=== PATIENT | female | born 1960 | race American Indian/Alaskan Native ===

== ENCOUNTER 2019-01-25 03:14 | Emergency (ER) | payer BC ==
[~2019-01-25] VITALS: Ht 165.1 cm; Wt 109.1 kg
[~2019-01-25 03:14] MED LIST: ASPI-1265 PO; INSU100V36 SQ; LANTUS SQ; crestor
[2019-01-25] MEDS ORDERED: acetaminophen 325mg tablet PO ONE (03:25)
[2019-01-25 03:55] LABS: BASOPHILS % (AUTO) 0.9 % (0-1); EOSINOPHILS % (AUTO) 0.8 % (0-6); LYMPHOCYTES # (AUTO) 1.5 X10'3 (1.1-4.8); LYMPHOCYTES % (AUTO) 39.2 % (21-51); MEAN CORPUSCULAR HEMOGLOBIN 26.8 PG (27.0-31.0); MEAN CORPUSCULAR VOLUME 78.7 FL (78-98); MONOCYTES # (AUTO) 0.6 X10'3 (0-0.9); MONOCYTES % (AUTO) 16.3 % (2-12); NEUTROPHILS # (AUTO) 1.6 X10'3 (1.8-7.7); NEUTROPHILS % (AUTO) 42.8 % (42-75); PLATELET COUNT 138 X10'3 (140-440); RED BLOOD COUNT 5.21 X10'6 (4.20-5.60); RED CELL DISTRIBUTION WIDTH 14.6 % (11.5-14.5); WHITE BLOOD COUNT 3.8 X10'3 (4.5-11.0)
[2019-01-25] MEDS ORDERED: ipratropium/albuterol 3ml nebule NEB ONE (03:55)
[2019-01-25 04:07] LABS: ALANINE AMINOTRANSFERASE 55 U/L (12-78); ALBUMIN 3.1 G/DL (3.4-5.0); ALBUMIN/GLOBULIN RATIO 0.7 (1.1-1.5); ALKALINE PHOSPHATASE 155 IU/L (46-116); ANION GAP 5 (8-16); ASPARTATE AMINO TRANSFERASE 53 U/L (10-37); BILIRUBIN,TOTAL 0.6 MG/DL (0.1-1.0); BLOOD UREA NITROGEN 6 MG/DL (7-18); BUN/CREATININE RATIO 10.5 (6.6-38.0); CALCIUM 8.1 MG/DL (8.5-10.1); CHLORIDE 99 MMOL/L (99-107); CREATININE 0.57 MG/DL (0.40-0.90); GLUCOSE 265 MG/DL (70-104); POTASSIUM 4.1 MMOL/L (3.5-5.1); SODIUM 132 MMOL/L (135-145); TOTAL CARBON DIOXIDE 28.2 MMOL/L (24-32); TOTAL PROTEIN 7.3 G/DL (6.4-8.2); eGFR > 90 ML/MIN
--- NOTE | 2019-01-25 04:42 | NUR ---
pt reports ease of breathing after neb treatment. awaiting lab results at this time. fever has decreased to 98.9 - no needs at this time.
[2019-01-25] MEDS ORDERED: AZIT-63 PO (04:58)
[2019-01-25] MEDS ORDERED: BENZ-38 PO (04:58)
[2019-01-25] MEDS ORDERED: azithromycin 250mg tablet PO ONE (05:00)
[2019-01-25 05:36] VITALS: BP 156/73
[2019-01-25 07:11] LABS: PLATELET ESTIMATE DECREASED; TOTAL CELLS COUNTED 100
[2019-01-25 07:12] LABS: MICROCYTOSIS 1+
== END 2019-01-25 05:37 | disposition home or self-care (01) ==
LOC: ER 03:15
DX: J20.9 Acute bronchitis, unspecified (principal); E11.9 Type 2 diabetes mellitus without complications; Z87.891 Personal history of nicotine dependence; Z88.5 Allergy status to narcotic agent; Z79.82 Long term (current) use of aspirin; Z79.4 Long term (current) use of insulin; Z79.899 Other long term (current) drug therapy
CPT/HCPCS: 36415; 71046; 80053; 85025; 87502; 87503; 94640; 94760; 99284

== ENCOUNTER 2021-11-10 14:40 | Inpatient (IN) | payer BC, OTHER ==
[~2021-11-10] VITALS: Ht 162.6 cm; Wt 99.5 kg
[2021-11-10] MEDS ORDERED: normal saline 1000ML IV soln IVB ONE (15:15)
[2021-11-10 15:36] LABS: HEMOGLOBIN 12.4 g/dl (12.0-16.0); MONOCYTES # (AUTO) 0.4 X10'3 (0-0.9); NEUTROPHILS # (AUTO) 0.2 X10'3 (1.8-7.7); NEUTROPHILS % (AUTO) 7.6 % (42-75); WHITE BLOOD COUNT 2.6 X10'3 (4.5-11.0)
[2021-11-10 15:39] LABS: BASOPHILS % (AUTO) 0.3 % (0-1); EOSINOPHILS % (AUTO) 0.2 % (0-6); HEMATOCRIT 36.9 % (35.0-45.0); LYMPHOCYTES % (AUTO) 76.2 % (21-51); MEAN CORPUSCULAR HEMOGLOBIN 28.3 PG (27.0-31.0); MEAN CORPUSCULAR HGB CONC 33.7 g/dL (33.0-36.5); MEAN PLATELET VOLUME 9.2 FL (7.4-10.4); MONOCYTES % (AUTO) 15.7 % (2-12); PLATELET COUNT 85 X10'3 (140-440); RED CELL DISTRIBUTION WIDTH 15.5 % (11.5-14.5)
[2021-11-10 15:45] LABS: ALANINE AMINOTRANSFERASE 34 U/L (12-78); ALBUMIN 2.8 G/DL (3.4-5.0); ALBUMIN/GLOBULIN RATIO 0.5 (1.1-1.5); ALKALINE PHOSPHATASE 183 IU/L (46-116); ANION GAP 9 (8-16); ASPARTATE AMINO TRANSFERASE 45 U/L (10-37); BILIRUBIN,TOTAL 0.8 MG/DL (0.1-1.0); BLOOD UREA NITROGEN 6 MG/DL (7-18); BUN/CREATININE RATIO 9.4 (6.6-38.0); CALCIUM 8.7 MG/DL (8.5-10.1); CHLORIDE 101 MMOL/L (99-107); CREATININE 0.64 MG/DL (0.40-0.90); POTASSIUM 3.9 MMOL/L (3.5-5.1); SODIUM 138 MMOL/L (135-145); TOTAL CARBON DIOXIDE 28.3 MMOL/L (24-32); TOTAL PROTEIN 7.9 G/DL (6.4-8.2); eGFR > 90 ML/MIN
[2021-11-10 15:51] LABS: GLUCOSE 113 MG/DL (70-104)
[2021-11-10 16:10] LABS: C-REACTIVE PROTEIN 2.44 MG/DL (0.0-0.5)
--- NOTE | 2021-11-10 16:41 | NUR ---
PATIENT AMBULATED TO BR STEADY GAIT. SPECIMEN OBTAINED, TO LAB.
[2021-11-10 16:42] LABS: LYMPHOCYTES % (MANUAL) 68 % (21-51); MONOCYTES % (MANUAL) 18 % (2-12); NEUTROPHILS % (MANUAL) 7 % (42-75); REACTIVE LYMPHOCYTES % 7 % (0-0); TOTAL CELLS COUNTED 100
[2021-11-10 16:47] LABS: ANISOCYTOSIS 1+; PLATELET ESTIMATE DECREASED
[2021-11-10 16:51] LABS: LARGE PLATELETS FEW
[2021-11-10] MEDS ORDERED: normal saline 1000ML IV soln IV ONE (16:55)
[2021-11-10] MEDS ORDERED: piperacillin/tazo 3.375gm/50ml 50 ML IV ONE (16:55)
[2021-11-10] MEDS ORDERED: vancomycin/NS 1 GM ADD-VANTAGE 250 ML IV ONE (16:55)
[2021-11-10 17:00] LABS: CLARITY,URINE CLOUDY (Clear); COLOR,URINE YELLOW (Yellow); GLUCOSE, URINE NEGATIVE (Neg); KETONES,URINE NEGATIVE (Neg); LEUKOCYTE ESTERASE ,URINE NEGATIVE (Neg); NITRITES, URINE NEGATIVE (Neg); OCCULT BLOOD,URINE NEGATIVE (Neg); PH,URINE 7.5 (4.8-8.0); PROTEIN,URINE NEGATIVE (Neg)
[2021-11-10 17:03] LABS: UA COLLECTION TYPE CLN CATCH MIDSTREAM
[2021-11-10] MEDS ORDERED: iohexol 300mg/ml 100ml inj. ONE (17:05)
[2021-11-10 17:14] LABS: BACTERIA,URINE 4+ /HPF (Neg); RBC,URINE 0-2 /HPF (0-2); SQUAMOUS EPITHELIAL CELL,UR FEW /LPF (FEW)
--- NOTE | 2021-11-10 17:50 | NUR ---
PATIIENT TO CT AND BACK WITH GOVERNMENT CLERK VIA GURNEY. DENIES ANY C/O PAIN
[2021-11-10] MEDS ORDERED: DUTA0.5C36 PO (19:10)
[2021-11-10] MEDS ORDERED: magnesium hydroxide 30ml (MOM) UD suspension PO PRN (19:10)
[2021-11-10] MEDS ORDERED: POTASSIUM BICARB 20meq eff tab 20 MEQ TABLET.EFF PO PRN ×2 (19:10)
[2021-11-10] MEDS ORDERED: OXYB-58 PO (19:10)
[2021-11-10] MEDS ORDERED: magnesium 2GM in 50ml NS 50 ML IV PRN (19:10)
[2021-11-10] MEDS ORDERED: magnesium Cl slow-release 64mg tablet PO PRN (19:10)
[2021-11-10] MEDS ORDERED: GENT30OI2 TOP (19:10)
[2021-11-10] MEDS ORDERED: COLL30OI TOP (19:10)
[2021-11-10] MEDS ORDERED: magnesium 4gm in 100ml NS 100 ML IV PRN (19:10)
[2021-11-10] MEDS ORDERED: ondansetron/PF 4mg/2ml inj IV PRN (19:10)
[2021-11-10] MEDS ORDERED: mag hydrox/Alum hydrox/simeth 30ml oral suspension PO PRN (19:10)
[2021-11-10] MEDS ORDERED: acetaminophen 325mg tablet PO PRN (19:10)
[2021-11-10] MEDS ORDERED: potassium CL 10mEq/100ml bag 100 ML IV PRN (19:10)
[2021-11-10] MEDS ORDERED: CHOL500050 PO (19:10)
[2021-11-10] MEDS ORDERED: LACT1CAP60 PO (19:11)
[2021-11-10] MEDS ORDERED: ASPI-1071 PO (19:12)
[2021-11-10] MEDS: docusate sod 100mg capsule PO SCH (20:00)
[2021-11-10] MEDS: heparin, porcine 5000 units/ml vial SQ SCH (20:42)
[2021-11-10] MEDS: clindamycin 300mg/D5W 50mL 50 ML IV SCH (20:42)
[2021-11-10] MEDS: K and/or MAG REPLACEMENT MC SCH (20:44)
[2021-11-10 21:41] LABS: MAGNESIUM 1.7 MG/DL (1.5-2.4); POTASSIUM 3.9 MMOL/L (3.5-5.1)
[2021-11-11] MEDS ORDERED: ceFAZolin/D5W- 1GM premix 50 ML IV SCH
[2021-11-11 00:45] VITALS: BP 168/69
[2021-11-11] MEDS: clindamycin 300mg/D5W 50mL 50 ML IV SCH ×3 (02:04→15:39)
[2021-11-11 06:00] VITALS: BP 157/68
--- NOTE | 2021-11-11 07:05 | NUR ---
Patient in room ORTHO 4023. I have received report from Rose Marie ROMO and had the opportunity to ask questions and assume patient care.
[2021-11-11 07:16] LABS: EOSINOPHILS % (AUTO) 0.3 % (0-6); LYMPHOCYTES # (AUTO) 1.4 X10'3 (1.1-4.8); MEAN PLATELET VOLUME 9.3 FL (7.4-10.4); MONOCYTES # (AUTO) 0.3 X10'3 (0-0.9); NEUTROPHILS # (AUTO) 0.2 X10'3 (1.8-7.7); NEUTROPHILS % (AUTO) 8.3 % (42-75)
[2021-11-11 07:18] LABS: BASOPHILS % (AUTO) 0.5 % (0-1); HEMATOCRIT 34.2 % (35.0-45.0); HEMOGLOBIN 11.8 g/dl (12.0-16.0); LYMPHOCYTES % (AUTO) 73.2 % (21-51); MEAN CORPUSCULAR HEMOGLOBIN 28.9 PG (27.0-31.0); MEAN CORPUSCULAR HGB CONC 34.5 g/dL (33.0-36.5); MEAN CORPUSCULAR VOLUME 83.8 FL (78-98); MONOCYTES % (AUTO) 17.7 % (2-12); PLATELET COUNT 75 X10'3 (140-440); RED BLOOD COUNT 4.08 X10'6 (4.20-5.60); RED CELL DISTRIBUTION WIDTH 15.5 % (11.5-14.5); WHITE BLOOD COUNT 1.9 X10'3 (4.5-11.0)
[2021-11-11 07:32] LABS: ALANINE AMINOTRANSFERASE 33 U/L (12-78); ALBUMIN 2.4 G/DL (3.4-5.0); ALBUMIN/GLOBULIN RATIO 0.5 (1.1-1.5); ALKALINE PHOSPHATASE 177 IU/L (46-116); ANION GAP 6 (8-16); ASPARTATE AMINO TRANSFERASE 51 U/L (10-37); BILIRUBIN,TOTAL 0.7 MG/DL (0.1-1.0); BLOOD UREA NITROGEN 7 MG/DL (7-18); BUN/CREATININE RATIO 11.9 (6.6-38.0); CALCIUM 8.2 MG/DL (8.5-10.1); CHLORIDE 105 MMOL/L (99-107); CREATININE 0.59 MG/DL (0.40-0.90); MAGNESIUM 1.8 MG/DL (1.5-2.4); POTASSIUM 4.1 MMOL/L (3.5-5.1); SODIUM 137 MMOL/L (135-145); TOTAL CARBON DIOXIDE 25.9 MMOL/L (24-32); eGFR > 90 ML/MIN
[2021-11-11 07:43] LABS: GLUCOSE 146 MG/DL (70-104)
[2021-11-11] MEDS: cefepime 1GM/NS ADD-VANTAGE 100 ML IV SCH ×2 (07:50→11:15)
[2021-11-11] MEDS ORDERED: OXYBUTYNIN CHLORIDE 5 MG PO SCH (08:00)
[2021-11-11] MEDS ORDERED: lactobacillus rhamnosus 10,000 MMU CELLS/CAPSULE PO SCH (08:00)
[2021-11-11] MEDS ORDERED: insulin glargine (Lantus) pen - multi-dose SQ SCH ×2 (08:00→21:00)
[2021-11-11] MEDS ORDERED: aspirin 81mg, enteric-coated 1 TAB TABLET.DR PO SCH (08:00)
[2021-11-11] MEDS ORDERED: COLLAGENASE TP SCH (08:00)
[2021-11-11] MEDS ORDERED: dutasteride 0.5 MG capsule PO SCH (08:00)
[2021-11-11] MEDS: K and/or MAG REPLACEMENT MC SCH (08:00)
[2021-11-11] MEDS ORDERED: gentamicin 0.1% topical ointment 15gm TP SCH (08:00)
[2021-11-11] MEDS: heparin, porcine 5000 units/ml vial SQ SCH (08:00)
[2021-11-11] MEDS ORDERED: cholecalciferol (vitamin D3) 1,000 unit (25mcg) tablet PO SCH (08:00)
[2021-11-11] MEDS: docusate sod 100mg capsule PO SCH (08:17)
[2021-11-11] MEDS ORDERED: vancomycin 1,750 MG in NS 350ml IV soln IV ONE (08:30)
[2021-11-11 09:14] LABS: TOTAL CELLS COUNTED 100
[2021-11-11 09:15] LABS: ANISOCYTOSIS 1+; PLATELET ESTIMATE DECREASED
[2021-11-11 09:16] LABS: LARGE PLATELETS FEW
--- NOTE | 2021-11-11 09:25 | NUR ---
Diabetes consult: Pt w/ hx of DM A1c 8.5 per EMR. Pt [facility]. Written DM w/ RD contact info left w/ pt and family members. Pt has buttock decubitus ulcer per MD note, WOC pending. Addendum: 11/11/21 at [address] Amended: Links added.
[2021-11-11 10:00] VITALS: BP 150/74
[2021-11-11 14:00] VITALS: BP 144/72
[2021-11-11] MEDS ORDERED: insulin Lispro (HumaLOG) vial - multi-dose SQ SCH (15:35)
[2021-11-11] MEDS ORDERED: dextrose 50%-water 50ml dispensing syringe IV PRN ×2 (15:35)
[2021-11-11] MEDS ORDERED: glucagon, human recombinant 1mg kit SUBCUT PRN (15:35)
[2021-11-11] MEDS ORDERED: DEXTROSE 15 GM of carb/4 tabs (each vial/BOTTLE has 4 tablets) PO PRN ×2 (15:35)
[2021-11-11] MEDS ORDERED: MESSAGE TO PHARMACY PO ONE (15:35)
[2021-11-11] MEDS ORDERED: vancomycin/NS 1 GM ADD-VANTAGE 250 ML IV SCH (23:00)
[2021-11-12] MEDS ORDERED: VANCOMYCIN LEVEL IV ONE (22:30)
== END 2021-11-11 16:50 | disposition left against medical advice (07) | DRG 603 ==
LOC: ER 14:40 → ED HOLD 19:09 → EDBEDREQ 23:45 → ORTHO 4S 11-11 00:05
PROVIDERS: ADMIT Internal Medicine; ATTEND Family Medicine
PROC: BW2G1ZZ Computerized Tomography (CT Scan) of Pelvic Region using Low Osmolar Contrast (ICD-10-PCS; principal; 2021-11-10)
DX: L03.317 Cellulitis of buttock (principal); E11.65 Type 2 diabetes mellitus with hyperglycemia; D72.819 Decreased white blood cell count, unspecified; Z53.29 Procedure and treatment not carried out because of patient's decision for other reasons; Z90.710 Acquired absence of both cervix and uterus; Z88.8 Allergy status to other drugs, medicaments and biological substances; Z79.899 Other long term (current) drug therapy; Z79.4 Long term (current) use of insulin
CPT/HCPCS: 36415; 72193; 80053; 81001; 82948; 83036; 83605; 83735; 84132; 84145; 85007; 85025; 85651; 86140; 87040; 87070; 87077; 87081; 87088; 87186; 93005; 96365; 99285; A6212; G0378; J0690; J0692; J1644; J1815; J2543; J3370; J3490; J7030; J7040; Q9967

== ENCOUNTER 2022-12-12 00:31 | Emergency (ER) | payer BC, OTHER ==
[~2022-12-12] VITALS: Ht 162.6 cm; Wt 86.4 kg
[~2022-12-12 00:31] MED LIST changes: +ASPI-1071 PO; -ASPI-1265 PO; +CHOL500050 PO; +COLL30OI TOP; +DUTA0.5C36 PO; +GENT30OI2 TOP; -INSU100V36 SQ; +LACT1CAP60 PO; +OXYB-58 PO; -crestor
[2022-12-12 00:34] VITALS: BP 146/79; PULSE 80; TEMP 98.2; O2SAT 97
[2022-12-12] MEDS ORDERED: ketorolac tromethamine 15mg/ml inj. IV ONE (00:40)
[2022-12-12 01:19] VITALS: RESP 20
== END 2022-12-12 02:12 | disposition home or self-care (01) ==
LOC: ER 00:32
DX: M25.552 Pain in left hip (principal); R55 Syncope and collapse; E11.9 Type 2 diabetes mellitus without complications; Z85.00 Personal history of malignant neoplasm of unspecified digestive organ; Z85.6 Personal history of leukemia; Z79.899 Other long term (current) drug therapy; Z79.82 Long term (current) use of aspirin; Z79.4 Long term (current) use of insulin; Z88.8 Allergy status to other drugs, medicaments and biological substances; W19.XXXA Unspecified fall, initial encounter; Y93.89 Activity, other specified; Y92.89 Other specified places as the place of occurrence of the external cause; Y99.8 Other external cause status
CPT/HCPCS: 73502; 96374; 99284; J1885

== ENCOUNTER 2025-01-17 17:04 | Inpatient (IN) | payer BC, OTHER ==
[~2025-01-17] VITALS: Ht 162.6 cm; Wt 91.8 kg
[2025-01-17 17:59] LABS: MEAN PLATELET VOLUME 9.0 FL (7.4-10.4); RED CELL DISTRIBUTION WIDTH 17.2 % (11.5-14.5)
[2025-01-17 18:09] LABS: CREATININE 1.28 MG/DL (0.40-0.90); TOTAL CARBON DIOXIDE 20.4 MMOL/L (24-32); eCRCL 37 ML/MIN; eGFR 42 ML/MIN
--- NOTE | 2025-01-17 18:20 | Physician Documentation ---
History of Present Illness Chief Complaint: Abdominal Pain Stated Complaint: ABDOMINAL PAIN Time Seen by MD: 18:18 OK to notify your PCP?: Yes Primary Medical Doctor: blanka mcdowell - Dr. Reynoso Source: patient, RN/, RN notes reviewed, old records Mode of Arrival: POV, Ambulatory Exam Limitations: no limitations HPI This patient has been having some abdominal pain for a couple of weeks. On Tuesday the patient was not feeling well [facility] and received some laboratory work. Patient has leukemia and was taking weekly pills. On Tuesday patient received an iron infusion and fluids because her blood pressure was low and feeling a bit ill. Today patient is seemed to be a bit more confused staring out into space having more abdominal pain that is seems to be much more severe and was having some shaking chills and rigors as well. She then decided to come into the ER for further workup and care. Patient is a poor historian she believes she has a urinary tract infection and is taking Pyridium currently not taking any antibiotics Medication Reconciliation Allergies: Coded Allergies: hydromorphone HCl (Verified Allergy, Intermediate, 01/17/25) N/V codeine (Verified Allergy, Unknown, 01/17/25) Scheduled Aspirin (Ecotrin*), 1 TAB PO DAILY, (Reported) Cholecalciferol (Vitamin D3) (Vitamin D3), 1 CAP PO DAILY, (Reported) Collagenase Oint* (Santyl Oint*), 1 APPLIC TOP DAILY, (Reported) Dutasteride (Dutasteride), 1 CAP PO DAILY, (Reported) Gentamicin Sulfate (Gentamicin Sulfate), 1 APPLIC TOP DAILY, (Reported) Insulin Glargine,Hum.rec.anlog* (Lantus*), 75 UNITS SQ DAILY, (Reported) Lactobac Cmb #3/Fos/Pantethine (Probiotic & Acidophilus Cap), 1 CAP PO DAILY, (Reported) Oxybutynin Chloride (Ditropan Xl), 1 TAB PO DAILY, (Reported) Past Medical History Past Medical History: Diabetes, Leukemia Past Surgical History: no surgical history Alcohol Use: None Lives with: Spouse Lives In: Home Review of Systems All Other Systems at this time: Reviewed and Negative Physical Exam Vital Signs: RN Vital Signs have been reviewed: Yes, Temperature: 98.9, Source: Temporal, Heart Rate: 104, Respiratory Rate: 16, BP: 130/45, Pulse Oximetry: 99, Weight: 91.820 Oxygen Flow Rate: 0 Physical Exam General: The patient is well developed, well nourished, ill appearing and is in mild acute distress. Skin: [place], warm and dry with no rashes. HEENT: Head was normocephalic and atraumatic. Eyes - pupils equal, round, reactive to light and accommodation. Extraocular movements were intact. Conjunctivae were nonicteric. The mouth and oropharynx were clear with moist mucous membranes. There were no pharyngeal exudates or erythema. Neck: Supple and nontender. There was no jugular venous distention, lymphadenopathy, thyromegaly or masses. Chest: Clear to auscultation bilaterally without wheezes, rales or rhonchi. No accessory muscle use. Heart: Rate regular rapid and rhythmic. S1, S2. No murmurs. Palpation of the chest wall was normal. No rubs or thrills. Abdomen: Diffusely tender but some point tenderness in the right upper right lower quadrant but all cano are painful and slightly distended. Positive increased bowel sounds. No guarding or rebound. No hepatosplenomegaly or palpable masses. No peritoneal signs Extremities: No cyanosis, clubbing or edema. The patient moves all extremities. Pulses were equal and symmetric. Neurologic: Motor sensory grossly intact Psychologic: The patient was oriented to person, place and time. The patient demonstrated appropriate judgement and insight. Progress Progress Note 8:30 p.m. discussed the case with General surgery recommended HIDA scan 9:50 p.m. discussed the case with the hospitalist regarding admission Results/Orders Reviewed/noted all lab results: Yes Results/Orders Vital Signs 01/17/25 01/17/25 01/17/25 17:14 17:38 17:44 Temp 98.9 Pulse 90 104 Resp 18 16 16 B/P (MAP) 140/53 130/45 (73) Pulse Ox 95 99 O2 Flow Rate 0 Laboratory Tests Test 01/17/25 17:40 CBC Comment Sodium Level 127 L Potassium Level 4.2 Chloride Level 96 L Carbon Dioxide Level 20.4 L Anion Gap 11 Blood Urea Nitrogen 24 H Creatinine 1.28 H Estimated GFR/1.73 m2 42 BUN/Creatinine Ratio 18.8 Glucose Level 190 H Calcium Level 7.4 L Total Bilirubin 3.6 H Aspartate Amino Transf (AST/SGOT) 26 Alanine Aminotransferase (ALT/SGPT) 22 Alkaline Phosphatase 149 H Total Protein 6.5 Albumin 2.2 L Globulin 4.3 Albumin/Globulin Ratio 0.5 L Lipase 33 Chemistry Comments Re-Evaluation Re-Evaluation : Re-Evaluation: Improved Progress Patient was given 2.7 L of fluids antibiotics placed on a monitor. Cat scans were obtained ultrasound patient has multiple sources of potential infections including urine, gallbladder, colon, and now x-ray was added showing some patchy infiltrates possible pneumonia. Patient did receive Zosyn and Rocephin assuming abdominal pathology. Rocephin covers both lung and urine infection as well. Patient received 30 milligrams/kilogram of fluids immediately. Patient is doing much better her mentation is starting to improve she is opening her eyes she is smiling. She remained hemodynamically stable in that there was no hypotension but she has had some tachycardia. Patient was then later admitted to the hospitalist service for further workup and care. CBC WBC 15.5 hemoglobin hematocrit 11 and 33 platelets low at 93 92.5 % neutrophils with a left shift. Coagulation obtained chemistry sodium low at 127 potassium 4.2 chloride 96 CO2 20 BUN 24 creatinine 1.2 with a lactic acid of 5.7 as well as glucose. During resuscitation which has not been completed patient's lactic acid has already improved to 3.9. Procalcitonin 8.17. Patient's bilirubin slightly elevated at 3.6 but LFTs are within normal limits. Calcium low at 7.4 for which the patient received supplementation. Patient's urine however was the patient's chief complaint for possible source of infection but she is taking Pyridium so the test is somewhat nondiagnostic. Urine WBCs 5-10 urine RBCs 0-2 with few squamous epithelial cells 2+ bacteria culture pending. Clearly patient has a UTI however may not be the primary source of the patient's overall presentation. Continuous impregnation operator interpretation shows sinus tachycardia heart rate 100s, abnormal, my interpretation. Pulse oximetry monitor interpretation shows normal oxygenation at 99% room air, normal, my interpretation. 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 Zane Rubin Measurements Intervals [place] Rate: 103 P: 52 NV: 159 QRS: 5 QRSD: 103 T: 31 QT: 344 QTc: 451 Interpretive Statements Sinus tachycardia Low voltage, precordial leads Baseline wander in lead(s) I,II,III,aVR,aVF Electronically Signed On 01-17-2025 21:51:[address] Zane Rubin Please click the below link to view image of tracing. Chest X-Ray : Interpreted By: both Views: 1 VIEW Additional Comments CHEST RADIOGRAPH Indication: CHEST PAIN Technique: Single frontal view of the chest was obtained COMPARISON: None FINDINGS: Mild patchy opacity at both lung bases. Cardiac silhouette and najma are within normal limits. Bones and soft tissues demonstrate no significant abnormality. IMPRESSION: Minimal patchy opacity at both lung bases which could be atelectatic. Please correlate with any strong concern for pneumonia. Electronically Signed by:JAVED RAMIREZ MD Date & Time: 01/17/252143 CT : CT: abdomen/pelvis With Contrast?: No Impression Exam: CT CT ABDOMEN PELVIS History: ABD PAIN Comparison Study: None Technique: Multidetector spiral CT of the abdomen was performed from lung bases to pubic symphysis. Imaging was performed without IV contrast. Axial, coronal and sagittal multiplanar reformats were obtained from the axial data set by the technologist. Radiation Dose : 1. Abdomen/Pelvis: CTDIvol 34.12 mGy, DLP 1869.74 mGy*cm. Findings: Findings: Evaluation of solid organs is limited due to lack of intravenous contrast use. Lung Bases: Trace right-sided pleural effusion. Liver: Cirrhotic in appearance with surface nodularity and lobar redistribution. Gallbladder and Biliary Tree: Cholelithiasis noted without secondary findings of cholecystitis or biliary obstruction. Spleen: Enlarged measuring 15.3 cm. Pancreas: The pancreas is grossly normal in appearance. Adrenal Glands: Unremarkable Kidneys: Kidneys are grossly normal without calculi or hydronephrosis. Bladder: Grossly unremarkable for degree of distention. Bowel: The stomach is grossly normal in appearance. Small bowel and colon are normal in caliber and distribution. Normal appendix is visualized in the right lower quadrant without findings of appendicitis. Questionable wall thickening of the cecum and ascending colon. Ascites: Generalized mesenteric edema. Trace ascites. Lymphadenopathy: No mesenteric, retroperitoneal or periportal lymphadenopathy. Abdominal Wall and Mesentery: Small fat containing paraumbilical hernia.. Vasculature: The visualized abdominal aorta is normal in size and caliber. Evaluation of abdominal and pelvic vessels is limited due to lack of intravenous contrast. Pelvic Organs: Unremarkable Musculoskeletal: No aggressive focal bony lesions, acute fractures or dislocation. IMPRESSION: Questionable thickening of the cecum and ascending colon. Please correlate with any symptoms of a colitis. Otherwise no acute abnormality. Cirrhosis with small volume of ascites and splenomegaly. Radiation optimization: All CT scans at this facility use at least one of these dose optimization techniques: automated exposure control mA and/or kV adjustment per patient size (includes targeted exams where dose is matched to clinical indication) or iterative reconstruction. Ultrasound : Impression INDICATION: ruq abdominal pain TECHNIQUE: Multiple real-time sonographic images of the abdomen were obtained. COMPARISON: CT CT ABDOMEN PELVIS on DOS: 01/17/25 FINDINGS: Liver: Normal in size measuring 12.3 cm with mild diffuse fatty infiltration. Gallbladder: Gallstones. No tense distention, wall thickening, or inflammatory changes. Sonographic Massey's sign is positive. CBD: 0.3 cm, within normal limits. Pancreas: Not well seen due to overlying bowel gas. Right kidney: 11.2 cm. No stones or hydronephrosis. IMPRESSION: Gallstones without acute cholecystitis. Medical Decision Making Additional information obtaine: old records Findings Possible risk factors with leukemia, immunosuppressive, multiple etiologies for infection: Gallbladder lung urine Differential Dx:Considerations: Angina/PA, Aortic dissection, Appendicitis, Cholangitis, Cholelithasis, Constipation, Diverticular disease, Esophagitis, Gastritis/PUD, Gastroenteritis, GI hemorrhage, Hernia, Hepatitis, Inflammatory BD, Ischemic bowel, Ovarian cyst/torsion, Pancreatitis, Urinary obstruction, Urinary tract infection, Urolithiasis, Other, N/A Departure Disposition: 09 ADMITTED INPATIENT Admitted to Inpatient Unit: yes, to hospitalist Admission Level of Care: PCU with Tele Impression: Primary Impression: Colitis Additional Impressions: Hyponatremia Metabolic encephalopathy Acute cholecystitis Sepsis Qualified Codes: A41.9 - Sepsis, unspecified organism; R65.20 - Severe sepsis without septic shock Condition: Guarded Referrals: NO PRIMARY CARE PROVIDER (PCP) Education Educated: Patient, Family Educated regarding: diagnosis, treatment Critical Care Note Total Time (mins): 30 Critical Care Note The very real possibility of a deterioration of this patient's condition requ ired the highest level of my preparedness for sudden, emergent intervention. I provided critical care services, which included medication orders, frequent reevaluations of the patient's condition and response to treatment, ordering and reviewing test results, and discussing the case with various consultants. Excludes time spent performing separately billable procedures. The critical care time associated with the care of the patient was. 30 minutes Signature Scribe Signature: x Attestation: The note accurately reflects work and decisions made by me.Zane Rubin MD 01/17/25 21:04 ZANE RUBIN MD Jan 17, 2025 18:20
[2025-01-17] MEDS: normal saline 1000ML IV soln IVB ONE (19:15)
[2025-01-17 19:18] LABS: APTT 38 SECONDS (22-32); INR 1.4 INR
[2025-01-17] MEDS: ringers solution, lactated 500ml IV solution IV ONE (19:20)
[2025-01-17] MEDS: CefTRIAXone 2gm/D5W 50ml BAG 50 ML IV ONE (20:11)
[2025-01-17] MEDS: piperacillin/tazo 3.375gm/50ml 50 ML IV ONE (20:11)
--- NOTE | 2025-01-17 20:15 | RADIOLOGY REPORT ---
Exam: CT CT ABDOMEN PELVIS History: ABD PAIN Comparison Study: None Technique: Multidetector spiral CT of the abdomen was performed from lung bases to pubic symphysis. Imaging was performed without IV contrast. Axial, coronal and sagittal multiplanar reformats were obtained from the axial data set by the technologist. Radiation Dose : 1. Abdomen/Pelvis: CTDIvol 34.12 mGy, DLP 1869.74 mGy*cm. Findings: Findings: Evaluation of solid organs is limited due to lack of intravenous contrast use. Lung Bases: Trace right-sided pleural effusion. Liver: Cirrhotic in appearance with surface nodularity and lobar redistribution. Gallbladder and Biliary Tree: Cholelithiasis noted without secondary findings of cholecystitis or biliary obstruction. Spleen: Enlarged measuring 15.3 cm. Pancreas: The pancreas is grossly normal in appearance. Adrenal Glands: Unremarkable Kidneys: Kidneys are grossly normal without calculi or hydronephrosis. Bladder: Grossly unremarkable for degree of distention. Bowel: The stomach is grossly normal in appearance. Small bowel and colon are normal in caliber and distribution. Normal appendix is visualized in the right lower quadrant without findings of appendicitis. Questionable wall thickening of the cecum and ascending colon. Ascites: Generalized mesenteric edema. Trace ascites. Lymphadenopathy: No mesenteric, retroperitoneal or periportal lymphadenopathy. Abdominal Wall and Mesentery: Small fat containing paraumbilical hernia.. Vasculature: The visualized abdominal aorta is normal in size and caliber. Evaluation of abdominal and pelvic vessels is limited due to lack of intravenous contrast. Pelvic Organs: Unremarkable Musculoskeletal: No aggressive focal bony lesions, acute fractures or dislocation. IMPRESSION: Questionable thickening of the cecum and ascending colon. Please correlate with any symptoms of a colitis. Otherwise no acute abnormality. Cirrhosis with small volume of ascites and splenomegaly. Radiation optimization: All CT scans at this facility use at least one of these dose optimization techniques: automated exposure control mA and/or kV adjustment per patient size (includes targeted exams where dose is matched to clinical indication) or iterative reconstruction.
[2025-01-17 20:31] LABS: UA COLLECTION TYPE STRAIGHT CATH
[2025-01-17 20:38] LABS: HYALINE CASTS 0-3 /LPF (NEGATIVE); MUCUS STRANDS FEW /LPF (Neg); SQUAMOUS EPITHELIAL CELL,UR FEW /LPF (FEW)
--- NOTE | 2025-01-17 21:03 | RADIOLOGY REPORT ---
INDICATION: ruq abdominal pain TECHNIQUE: Multiple real-time sonographic images of the abdomen were obtained. COMPARISON: CT CT ABDOMEN PELVIS on DOS: 01/17/25 FINDINGS: Liver: Normal in size measuring 12.3 cm with mild diffuse fatty infiltration. Gallbladder: Gallstones. No tense distention, wall thickening, or inflammatory changes. Sonographic Massey's sign is positive. CBD: 0.3 cm, within normal limits. Pancreas: Not well seen due to overlying bowel gas. Right kidney: 11.2 cm. No stones or hydronephrosis. IMPRESSION: Gallstones without acute cholecystitis.
[2025-01-17] MEDS: ringers solution, lacted 1,000 ML IV ONE (21:20)
--- NOTE | 2025-01-17 21:36 | ELECTROCARDIOGRAPH REPORT ---
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 Aaron Ortiz Measurements Intervals [place] Rate: 103 P: 52 [place]: 159 QRS: 5 QRSD: 103 T: 31 QT: 344 QTc: 451 Interpretive Statements Sinus tachycardia Low voltage, precordial leads Baseline wander in lead(s) I,II,III,aVR,aVF Electronically Signed On 01-17-2025 21:51:[address] Aaron Ortiz Please click the below link to view image of tracing.
--- NOTE | 2025-01-17 21:46 | RADIOLOGY REPORT ---
CHEST RADIOGRAPH Indication: CHEST PAIN Technique: Single frontal view of the chest was obtained COMPARISON: None FINDINGS: Mild patchy opacity at both lung bases. Cardiac silhouette and najma are within normal limits. Bones and soft tissues demonstrate no significant abnormality. IMPRESSION: Minimal patchy opacity at both lung bases which could be atelectatic. Please correlate with any strong concern for pneumonia.
[2025-01-17 22:23] LABS: LACTATE DEHYDROGENASE 232 U/L (81-234); PHOSPHORUS 3.5 MG/DL (2.3-4.5)
--- NOTE | 2025-01-17 22:44 | HISTORY AND PHYSICAL-Residence ---
History & Physical Providers to CC Resident Creating Document: JONAH HALE, RES ~ History of Present Illness Primary Medical Doctor: blanka mcdowell - Dr. Reynoso Reason for Admit\Complaint: abd pain History of Present Illness This is a 64 year old female with past medical history of diabetes, rheumatoid arthritis presents to the ER with chief complaints of abdominal pain. Patients and sister were present at the bedside. Patient was unable to give proper history as she was in acute distress, so most of the history has been obtained from her . According to him she started having pain in her abdomen few days ago, gradually increasing in intensity, got to a point where it became intolerable today, patient rates the pain as 9/10 in intensity, present in the right lower and upper quadrant, not radiating. She reports having associated nausea but no complaints of vomitings. She also reports that she has been having loose stools for the past 2 days, dark in color, about 7 episodes in the last 2 days, no blood seen. She also reports having chills but no fevers. She says that it is the 1st time that is something like this has happened, never had similar episodes in the past. Patient denies eating anything unusual, no recent sick contacts, no recent travel, no recent hospitalization or antibiotic usage. Allergies: Coded Allergies: hydromorphone HCl (Verified Allergy, Intermediate, 01/17/25) N/V codeine (Verified Allergy, Unknown, 01/17/25) Home Medications Home Medications Active Reported Ecotrin* (Aspirin) 81 Mg Tablet.dr 1 Tab PO DAILY 30 Days Probiotic & Acidophilus Cap (Lactobac Cmb #3/Fos/Pantethine) 1 Each Capsule 1 Cap PO DAILY Vitamin D3 (Cholecalciferol (Vitamin D3)) 125 Mcg Capsule 1 Cap PO DAILY Dutasteride 0.5 Mg Capsule 1 Cap PO DAILY Ditropan Xl (Oxybutynin Chloride) 5 Mg Tab.osm.24 1 Tab PO DAILY Gentamicin Sulfate 30 Gm Oint..gm. 1 Applic TOP DAILY Santyl Oint* (Collagenase) 30 Gm Oint..gm. 1 Applic TOP DAILY Lantus* (Insulin Glargine) 100 Unit/1 Ml Vial 75 Units SQ DAILY Past Medical History Past Medical History Diabetes mellitus type 2 Rheumatoid arthritis Past Surgical History Surgical History Comment Hysterectomy Past Social History Social History Comment Patient stopped smoking 38 years ago Drinks alcohol socially but stopped drinking 2 years ago No other illicit drug use Patient lives at home with GRACE-Blanka Mcdowell Smoking: Non-Smoker, Quit greater than 1 year Alcohol Use: None Lives with: Spouse Lives In: Home ROS All Other Systems: Reviewed and Negative ROS Constitutional: Denies: no symptoms reported, Eyes: Denies: no symptoms reported ENT: Denies: no symptoms reported Respiratory: Denies: Reports mild shortness of breath Cardiovascular: Denies: No symptoms reported Gastrointestinal: Denies: Reports Right lower and upper quadrant abdominal pain Genitourinary: Denies: no symptoms reported Female Genitalia: Denies: no reported symptoms Neurological: Denies: no symptoms reported Musculoskeletal: Denies: no symptoms reported Endocrine: Denies: no symptoms reported Exam Vitals: Vital Signs Date Time Temp Pulse Resp B/P (MAP) Pulse Ox O2 Delivery O2 Flow Rate FiO2 01/17/25 22:25 107 16 120/46 (70) 94 0 01/17/25 17:14 98.9 General: General: Awake, alert, oriented, in acute distress due to pain HEENT: Conjunctive are pink, sclerae clear, no icterus, Neck: Supple, no JVD, no lymphadenopathy and thyromegaly. Chest: Decreased breath sounds in the right side Cardiovascular: S1-S2 heard no gallops, no rubs, no murmurs Abdomen: soft, tenderness present in the right upper and lower quadrants of the abdomen, no guarding, no rigidity, no rebound tenderness Extremities: No edema, no cyanosis, peripheral pulsations intact Central Nervous System: No focal neurological deficits Musculoskeletal: No joint swelling, deformities, inflammations, and no scoliosis and back tenderness Skin: Warm and dry. Diagnostic Data Last Recorded Lab Results: 01/18/25 0405 01/18/25 0405 Diagnostic Data: Laboratory Tests Test 01/17/25 17:40 Prothrombin Time 13.8 SECONDS (9.0-12.0) H INR International Normalized Ratio 1.4 INR Activated Partial Thromboplast Time 38 SECONDS (22-32) H Coagulation Comments Advance Care Planning Advanced Care plannin - 30 Minutes (Full code) Additional Plan Acute abdominal pain Acute onset diarrhea Neutrophilic leukocytosis Likely due to cholelithiasis vs colitis Sepsis -Patient meeting SIRS criteria. Patient is hemodynamically stable except for tachycardia -Patient currently complaining of right upper and lower abdominal pain -Increased WBC count 15.5, Procal increased-8.17 -Total bilirubin increased 3.6, increased alkaline phosphatase 149 -CT abdomen shows- Questionable thickening of the cecum and ascending colon. Please correlate with any symptoms of a colitis. Cholelithiasis noted without secondary findings of cholecystitis or biliary obstruction. -Lactic acid initially 5.7, down trended to 3.9.patient was given 2 L LR bolus in the ED. And 1 L bolus NS. -Continuing the patient on NS 100 cc/hour. -Started patient on Flagyl and Levaquin -Awaiting results of HIDA scan. -C diff ordered please follow-up. Possible Pneumonia Community-acquired vs aspiration Increased WBC count and Procal Patient denies any complaints of cough, fevers, sputum production Patient was slightly short of breath clinically, currently maintaining saturation on room air Chest x-ray- Minimal patchy opacity at both lung bases which could be atelectatic. Please correlate with any strong concern for pneumonia. Patient on Levaquin Hyponatremia- Na- 127 Patient on fluids NS 100 cc/hr MAKENNA Likely due to dehydration Baseline creatinine-0.57 Current creatinine-1.28 Patient on fluids. Normocytic anemia- Hb- 11.4, MCV 90.6 Patient reports taking iron pills Iron studies ordered please follow-up Cirrhosis Likely due to underlying fatty liver No signs of peritonitis present AST ALT normal Low albumin 2.2 Increased bilirubin, alkaline phosphatase Low platelet, anemia CT scan shows Liver- Cirrhotic in appearance with surface nodularity and lobar redistribution. GGT ordered follow-up Patient has an appointment in January to follow-up on cirrhosis. Leukemia Currently in remission Cytopenia Decreased RBC and platelet count. Patient follows up with Dr. Hansen Code status: Full code DVT profile: Heparin Diet: Liquid Jonahshine Hale PGY-1 Date of Service: Jan 17, 2025 Billing Provider: MIGUEL ANGEL MC MD Addendum Attestation I agree with the residents assessment and plan as below: 64 year old female with DM admitted with abdominal pain. Plan: c diff hida scan levaquin and flagyl stool analysis mIVF CCT 52 min using HIPPA compliant A/V technology JONAH HALE, RES Jan 17, 2025 22:44 MIGUEL ANGEL MC MD Jan 18, 2025 18:50
[2025-01-17] MEDS ORDERED: magnesium sulf-water 2g/50mL 50 ML IV PRN (22:50)
[2025-01-17] MEDS ORDERED: magnesium Cl slow-release 64mg tablet PO PRN (22:50)
[2025-01-17] MEDS ORDERED: mag hydrox/Alum hydrox/simeth 30ml oral suspension PO PRN (22:50)
[2025-01-17] MEDS ORDERED: potassium Cl 40MEQ/1/2NS 520ml 520 ML IV PRN (22:50)
[2025-01-17] MEDS ORDERED: HYDROcodone/acetaminophen 10/325mg tab PO PRN (22:50)
[2025-01-17] MEDS ORDERED: magnesium sulf-water 4G/100mL 100 ML IV PRN (22:50)
[2025-01-17] MEDS ORDERED: magnesium hydroxide 30ml (MOM) UD suspension PO PRN (22:50)
[2025-01-17] MEDS ORDERED: potassium Cl 20 mEq SR tablet PO PRN ×2 (22:50)
[2025-01-17] MEDS ORDERED: HYDROcodone/acetaminophen 5mg/325mg tablet PO PRN (22:50)
[2025-01-18] MEDS: calcium chloride inj. 1,000 MG in normal saline 100ml IV soln 100 ML IV ONE (00:15)
[2025-01-18] MEDS: normal saline 1000ml 1,000 ML IV SCH (01:22)
[2025-01-18 01:50] VITALS: BP 138/57; PULSE 106; RESP 30; TEMP 98.9; O2SAT 96
[2025-01-18] MEDS ORDERED: TIRZ15PE SQ (02:45)
[2025-01-18] MEDS ORDERED: LIDO700A47 TOP (02:48)
[2025-01-18 04:23] LABS: MEAN PLATELET VOLUME 8.5 FL (7.4-10.4); RED CELL DISTRIBUTION WIDTH 17.3 % (11.5-14.5)
[2025-01-18 04:48] LABS: CHOL/HDL RATIO 6.9 (0.00-4.99); CREATININE 0.92 MG/DL (0.40-0.90); LDL CHOLESTEROL 34 MG/DL (50-100); TOTAL CARBON DIOXIDE 22.1 MMOL/L (24-32); eCRCL 52 ML/MIN; eGFR 61 ML/MIN
[2025-01-18 05:03] LABS: BANDS% (MANUAL) 2.0 % (0-10); EOSINOPHILS % (MANUAL) 1.0 % (0-6); LYMPHOCYTES % (MANUAL) 4.0 % (21-51); MONOCYTES % (MANUAL) 5.0 % (2-12); NEUTROPHILS % (MANUAL) 88.0 % (42-75); PLATELET ESTIMATE DECREASED
[2025-01-18 06:09] LABS: % IRON SATURATION 13 % (11-46)
[2025-01-18 07:15] VITALS: BP 95/44; PULSE 86; RESP 16; TEMP 97.3; O2SAT 93
[2025-01-18 08:00] VITALS: RESP 16; O2SAT 93
[2025-01-18] MEDS: K and/or MAG REPLACEMENT MC SCH (08:00)
[2025-01-18] MEDS: docusate sod 100mg capsule PO SCH (08:00)
[2025-01-18] MEDS: heparin, porcine 5000 units/ml vial SQ SCH (08:00)
[2025-01-18] MEDS: metroNIDAZOLE-Flagyl 500mg/NS 100 ML IV SCH (08:58)
[2025-01-18] MEDS: levoFLOXACIN-Levaquin 500mg/D5 100 ML IV SCH (08:58)
--- NOTE | 2025-01-18 14:44 | RADIOLOGY REPORT ---
HEPATOBILIARY SCINTIGRAPHY (HIDA SCAN) WITH EJECTION FRACTION REASON FOR EXAM: gallbladder pain. Abdominal pain. COMPARISON: None TECHNIQUE: 5.3 mCi of technetium 99m Choletec were injected intravenously and hepatobiliary scan was performed. This was followed by slow intravenous injection of 1.8 mcg sincalide. Dynamic cine loop and static images were reviewed on a workstation. FINDINGS: There is homogenous uptake of radiotracer within the liver on the immediate flow images. There is visualization of the biliary tree within 20 minutes of the study and there is progressive passage of radiotracer into the small bowel as the study progresses. There is no radiotracer extravasation. The gallbladder is visualized within 35 minutes of the study. Gallbladder ejection fraction is estimated at 15 % (normal greater than 35%). IMPRESSION: Patent cystic duct. No evidence of acute cholecystitis. Decreased gallbladder ejection fraction. This finding is nonspecific and can be seen with generalized illness, chronic acalculous cholecystitis, biliary dyskinesia, neuropathic and GI motility disorders.
[2025-01-18 15:14] LABS: OCCULT BLOOD STOOL POSITIVE (Neg)
--- NOTE | 2025-01-18 15:16 | PROGRESS NOTE ---
Daily Progress Note Providers to CC ~ Antibiotic Timeout Antibiotic Ordered?: Yes Subjective No new complaints. Family at bedside. Patient is asymptomatic. Objective Vital Signs Date Time Temp Pulse Resp B/P (MAP) Pulse Ox O2 Delivery O2 Flow Rate FiO2 01/18/25 08:00 16 93 Room Air 01/18/25 07:15 97.3 86 95/44 (61) 01/18/25 04:35 0.0 Result Diagram: 01/18/2540401/18/25404 Gen. awake alert oriented asymptomatic HEENT: Normocephalic, atraumatic, extraocular movements are intact, sclera anicteric, conjunctiva pinkish, moist oral mucosa, no rash or ulcers. NECK: Supple, no JVD, trachea midline. CHEST: Clear to auscultation, no wheezes crackles or rhonchi. HEART: Regular rate rhythm, no murmur gallop or rub. ABDOMEN: Soft, nontender, no organomegaly. EXTREMITIES: No cyanosis clubbing or edema. NEURO EXAM: Grossly nonfocal. MUSCULOSKELETAL : No joint swelling or deformities. SKIN: No rash or ulcers noted. Coagulation Studies Laboratory Tests Test 01/17/25 17:40 Prothrombin Time 13.8 SECONDS (9.0-12.0) H INR International Normalized Ratio 1.4 INR Activated Partial Thromboplast Time 38 SECONDS (22-32) H Coagulation Comments Other Results Medications reviewed Problem\Assessment\Plan 64 years old female #UTI: On IV Rocephin.Await final cultures. # Abdominal pain: Underwent HIDA scan which is negative for acute cholecystitis but showed a decreased ejection fraction which is a nonspecific finding and can be find with generalized illness, chronic acalculous cholecystitis, biliary dyskinesia and neuropathic and GI motility disorders. We will request surgery consult. #hyponatremia : Continue monitor # Gram-negative bacteremia: Continue IV antibiotics as noted above # code status: full code Date of Service: Jan 18, 2025 Billing Provider: GILA MIMS MD Common Visit Codes: [id number] INP/OBS CARE(HIGH) GILA MIMS MD Jan 18, 2025 15:16
[2025-01-18 15:24] LABS: C DIFF ANTIGEN NEGATIVE (NEGATIVE); C DIFF SPECIMEN=DIARRHEA? ACCEPTABLE; C DIFFICILE TOXINS A&B NEGATIVE (Neg)
[2025-01-18 15:48] VITALS: BP 103/58; PULSE 79; RESP 16; TEMP 97.9
[2025-01-18 18:00] VITALS: BP 127/75; PULSE 85; RESP 22; TEMP 97.1; O2SAT 96
[2025-01-18 20:00] VITALS: BP 99/47; PULSE 81; RESP 16; TEMP 97.4; O2SAT 94
[2025-01-18] MEDS ORDERED: CefTRIAXone/D5W-Rocephin 1gm 50 ML IV SCH (20:00)
[2025-01-18] MEDS ORDERED: METH2.5T55 PO (20:20)
[2025-01-18] MEDS ORDERED: ROSU10TA98 PO (20:24)
[2025-01-18] MEDS ORDERED: ESTR1TAB28 PO (20:24)
[2025-01-18] MEDS: ondansetron/PF 4mg/2ml inj IV PRN (20:36)
[2025-01-18] MEDS: normal saline 1000ML IV soln IVB ONE (23:07)
[2025-01-19] VITALS (7 sets, daily range): BP systolic 108–124; BP diastolic 47–61; PULSE 57–95; RESP 13–25; TEMP 97.3–98.4; O2SAT 92–98
[2025-01-19 03:33] LABS: MEAN PLATELET VOLUME 8.2 FL (7.4-10.4); RED CELL DISTRIBUTION WIDTH 17.1 % (11.5-14.5)
[2025-01-19 03:50] LABS: CREATININE 0.96 MG/DL (0.40-0.90); TOTAL CARBON DIOXIDE 22.1 MMOL/L (24-32); eCRCL 50 ML/MIN; eGFR 58 ML/MIN
[2025-01-19 03:56] LABS: BANDS% (MANUAL) 2.0 % (0-10); LYMPHOCYTES % (MANUAL) 6.0 % (21-51); MONOCYTES % (MANUAL) 10.0 % (2-12); NEUTROPHILS % (MANUAL) 82.0 % (42-75); PLATELET ESTIMATE DECREASED
--- NOTE | 2025-01-19 13:05 | PROGRESS NOTE ---
Daily Progress Note Providers to CC ~ Antibiotic Timeout Antibiotic Ordered?: Yes Subjective No new complaints, patient is seen resting comfortably. Objective Vital Signs Date Time Temp Pulse Resp B/P (MAP) Pulse Ox O2 Delivery O2 Flow Rate FiO2 01/19/25 11:00 97.6 85 24 109/49 (69) 94 Room Air 01/19/25 08:00 0.0 Result Diagram: 01/19/25 0322 01/19/25 0322 Gen. awake alert oriented asymptomatic HEENT: Normocephalic, atraumatic, extraocular movements are intact, sclera anicteric, conjunctiva pinkish, moist oral mucosa, no rash or ulcers. NECK: Supple, no JVD, trachea midline. CHEST: Clear to auscultation, no wheezes crackles or rhonchi. HEART: Regular rate rhythm, no murmur gallop or rub. ABDOMEN: Soft, tender in the right upper quadrant ,no organomegaly. EXTREMITIES: No cyanosis clubbing or edema. NEURO EXAM: Grossly nonfocal. MUSCULOSKELETAL : No joint swelling or deformities. SKIN: No rash or ulcers noted. Coagulation Studies Laboratory Tests Test 01/17/25 17:40 Prothrombin Time 13.8 SECONDS (9.0-12.0) H INR International Normalized Ratio 1.4 INR Activated Partial Thromboplast Time 38 SECONDS (22-32) H Coagulation Comments Other Results Medications reviewed Problem\Assessment\Plan 64 years old female #UTI: On IV Rocephin.Await final cultures. # Abdominal pain: Underwent HIDA scan which is negative for acute cholecystitis but showed a decreased ejection fraction which is a nonspecific finding and can be find with generalized illness, chronic acalculous cholecystitis, biliary dyskinesia and neuropathic and GI motility disorders. Discussed with Dr. Hathaway and he has a agreed to evaluate the patient in the morning. # hyperbilirubinemia: Check MRCP. #hyponatremia : Continue monitor # Gram-negative bacteremia: Continue IV antibiotics as noted above # anemia of chronic disease. Monitor H&H. Transfuse for hemoglobin less than seven. # code status: full code Date of Service: Jan 19, 2025 Billing Provider: GILA MIMS MD Common Visit Codes: [id number] INP/OBS CARE(HIGH) GILA MIMS MD Jan 19, 2025 13:05
[2025-01-20 02:00] VITALS: BP 110/53; PULSE 78; RESP 18; TEMP 97.3; O2SAT 94
[2025-01-20 06:30] LABS: MEAN PLATELET VOLUME 8.1 FL (7.4-10.4); RED CELL DISTRIBUTION WIDTH 17.4 % (11.5-14.5)
[2025-01-20 06:51] LABS: CREATININE 0.64 MG/DL (0.40-0.90); TOTAL CARBON DIOXIDE 22.1 MMOL/L (24-32); eCRCL 75 ML/MIN; eGFR > 90 ML/MIN
[2025-01-20 07:00] VITALS: BP 111/45; PULSE 82; RESP 20; TEMP 99; O2SAT 94
[2025-01-20 10:00] VITALS: BP 114/63; PULSE 84; RESP 18; TEMP 97.2; O2SAT 93
[2025-01-20] MEDS ORDERED: METR-159 PO (14:34)
[2025-01-20] MEDS ORDERED: LEVO-65 PO (14:34)
--- NOTE | 2025-01-20 14:52 | DISCHARGE SUMMARY ---
Discharge Summary Providers to CC ~ Discharge Summary Admission Diagnosis: Abdominal pain Hospital Course DATE OF ADMISSION: 01/17/2025 DATE OF DISCHARGE:01/20/2025 Discharge Diagnosis\Comment: Ascending colitis Hyponatremia Operations\Procedures: GB Nuclear medicine scan Abdomen/Pelvis CT Abdomen US Consultants: Dr. Hathaway Complications: None Condition on DC: Stable New Medications: Levofloxacin (Levofloxacin) 500 Mg Tablet 1 TAB PO DAILY for 10 Days, #10 TAB Metronidazole* (Flagyl*) 500 Mg Tablet 1 TAB PO TID for 10 Days, #30 TAB Continued Medications: Estradiol (Estradiol) 1 Mg Tablet 1 TAB PO DAILY Lidocaine (Lidocaine) 5 % Adh..patch 1 PATCH TOP DAILY Methotrexate Sodium (METHOTREXATE tablet) 2.5 Mg Tablet 4 TAB PO Q7D Rosuvastatin Calcium (Rosuvastatin Calcium) 10 Mg Tablet 1 TAB PO HS Tirzepatide (Mounjaro) 15 Mg/0.5 Ml Pen.injctr 15 MG SQ Q7D Discharge Summary: Reason for admission: Please refer to admission H&P for more details. Hospital course: Patient was admitted on the monitored floor and the hospital course is as follows. # ascending colitis: Patient presented with right-sided abdominal pain. She was also evaluated with a HIDA scan which showed decreased ejection fraction. Surgery was consulted. No surgical intervention recommended by Dr. Hathaway. Patient treated with IV antibiotics and has clinically improved # Klebsiella pneumoniae bacteremia: Pansensitive. Patient has been discharged on p.o. Levaquin. # hyponatremia: Started on IV fluids and monitor # anemia of chronic disease. H&H remained stable #hyperlipidemia: Continued on rosuvastatin. # Hyperbilirubinemia ; Resolved with IV hydration # Protein calorie malnutrition Moderate : Given albumin advised to take ensure and follow up with PCP Discharge exam: I examined the patient on the day of discharge. Gen. awake alert oriented asymptomatic HEENT: Normocephalic, atraumatic, pupils round reactive to light and accommodation, extraocular movements are intact, sclera anicteric, conjunctiva pinkish, moist oral mucosa, no rash or ulcers. NECK: Supple, no JVD, trachea midline. CHEST: Clear to auscultation, no wheezes crackles or rhonchi. HEART: Regular rate rhythm, no murmur gallop or rub. ABDOMEN: Soft, nontender, no organomegaly. EXTREMITIES: No cyanosis clubbing or edema. NEURO EXAM: Grossly nonfocal. MUSCULOSKELETAL : No joint swelling or deformities. SKIN: No rash or ulcers noted. Disposition : Home *Problems/Diagnosis: (1) Metabolic encephalopathy Status: Acute (2) Hyponatremia Status: Acute (3) Colitis Status: Acute Total Time Spent on D/C: > 30 Minutes Date of Service: Jan 20, 2025 Billing Provider: GILA MIMS MD Common Visit Codes: 08404-EZH/OBS DISCH DAY >30min GILA MIMS MD Jan 20, 2025 14:49
[2025-01-20] MEDS ORDERED: [UNRECOGNIZED DRUG - CODE] PO (14:55)
[2025-01-20 15:00] VITALS: BP 142/68; PULSE 87; RESP 28; TEMP 98.3; O2SAT 93
[2025-01-20] MEDS: albumin (human) 25% 100 ML IV solution IV ONE (15:15)
--- NOTE | 2025-01-20 17:08 | RADIOLOGY REPORT ---
MR MRCP Indication: RIGHT UPPER QUADRANT PAIN ,HYPERBILIRUBINEMIA Comparison: CT CT ABDOMEN PELVIS on DOS: 01/17/25 Technique: MRI and MRCP of the abdomen was performed without gadolinium. 3D reconstructed images were created under concurrent radiologist supervision and archived on the PACS system. Findings: Severely limited study with near nondiagnostic images due to degradation from motion as well as other artifacts. For example, coronal T2 and MRCP images are nondiagnostic. Hepatobiliary Findings: Bile ducts: Not well evaluated on severely limited study. Liver: Cirrhosis. Small volume ascites. Gallbladder: Cholelithiasis. Mild gallbladder wall thickening. No significant distention. Pancreas: No large mass or fluid collection. Additional Findings: Lower chest: Right basilar patchy opacities and probable underlying pleural effusion. Spleen: Splenomegaly. Adrenals: Unremarkable. Kidneys: No Warren nephrosis. Bowel: Not well evaluated. Lymph nodes: Unremarkable. Vessels: Not well evaluated. Bones: Not well evaluated. IMPRESSION: Severely limited nearly nondiagnostic study, with bile ducts not well- visualized. Recommend repeat study. Cirrhosis with sequela of portal hypertension including small volume ascites and splenomegaly.
== END 2025-01-20 16:35 | disposition home or self-care (01) | DRG 871 ==
LOC: ER 17:05 → ED HOLD 21:57 → PCU 3S 01-18 01:13
PROVIDERS: ADMIT Internal Medicine; ATTEND Internal Medicine
PROC: CF141ZZ Planar Nuclear Medicine Imaging of Gallbladder using Technetium 99m (Tc-99m) (ICD-10-PCS; principal; 2025-01-18)
DX: A41.59 Other Gram-negative sepsis (principal); G93.41 Metabolic encephalopathy; E44.0 Moderate protein-calorie malnutrition; D63.8 Anemia in other chronic diseases classified elsewhere; K74.60 Unspecified cirrhosis of liver; K81.1 Chronic cholecystitis; N17.9 Acute kidney failure, unspecified; N39.0 Urinary tract infection, site not specified; R65.20 Severe sepsis without septic shock; E11.9 Type 2 diabetes mellitus without complications; Z68.34 Body mass index [BMI] 34.0-34.9, adult; E87.1 Hypo-osmolality and hyponatremia; K52.9 Noninfective gastroenteritis and colitis, unspecified; K82.8 Other specified diseases of gallbladder; E78.5 Hyperlipidemia, unspecified
CPT/HCPCS: 36415; 71045; 74176; 74181; 76700; 78227; 80053; 80061; 81001; 82248; 82272; 82728; 82948; 82977; 83036; 83540; 83550; 83605; 83615; 83690; 83735; 84100; 84145; 84550; 85007; 85025; 85610; 85730; 87040; 87045; 87046; 87077; 87081; 87088; 87186; 87324; 87449; 89055; 93005; 96365; 96368; 97161; 97530; 99291; A4615; A9537; G0378; J0696; J1644; J1956; J2405; J2543; J2805; J3490; J7030; J7120; P9047